=== PATIENT | male | born 1980 | race Two or more races ===

== ENCOUNTER 2024-03-28 20:43 | Emergency (ER) | payer SELFPAY ==
[~2024-03-28] VITALS: Ht 172.7 cm; Wt 70.0 kg
[2024-03-28 20:46] VITALS: PULSE 100; RESP 21; TEMP 97.7; O2SAT 79
[2024-03-28] MEDS: ETOMIDATE (2MG/ML) 20ML VIAL IV ONE ×3 (20:51→21:12)
[2024-03-28 21:02] VITALS: PULSE 96; RESP 36; O2SAT 96
[2024-03-28 21:07] VITALS: BP 108/72
[2024-03-28] MEDS: MIDAZOLAM DRIP 50 mg/50mL 50 ML IV SCH (21:07)
[2024-03-28] MEDS: MIDAZOLAM DRIP 50 mg/50mL 50 ML IV ONE (21:10)
[2024-03-28] MEDS ORDERED: MIDAZOLAM DRIP 50 mg/50mL 50 ML IV SCH (21:15)
== END 2024-03-28 21:11 | disposition short-term general hospital (02) ==
LOC: ER 20:43 → EDBD 20:43 → ER 21:11
DX: I46.9 Cardiac arrest, cause unspecified (principal); J96.90 Respiratory failure, unspecified, unspecified whether with hypoxia or hypercapnia; T14.91XA Suicide attempt, initial encounter; F15.90 Other stimulant use, unspecified, uncomplicated; X83.8XXA Intentional self-harm by other specified means, initial encounter; Y93.89 Activity, other specified; Y92.89 Other specified places as the place of occurrence of the external cause; Y99.8 Other external cause status
CPT/HCPCS: 31500; 71045; 99291; J2250